=== PATIENT | female | born 1955 | race Hispanic/Latino ===

== ENCOUNTER 2022-08-06 10:18 | Emergency (ER) | payer OTHER ==
[~2022-08-06] VITALS: Ht 160 cm; Wt 61.7 kg
[2022-08-06 10:20] VITALS: BP 136/66
[2022-08-06] MEDS ORDERED: METH4TAB3 PO (11:45)
== END 2022-08-06 11:44 | disposition home or self-care (01) ==
LOC: EDH 10:18
DX: J06.9 Acute upper respiratory infection, unspecified (principal); E11.9 Type 2 diabetes mellitus without complications; Z20.822 Contact with and (suspected) exposure to COVID-19
CPT/HCPCS: 99283; 87635; 87880; 87804 ×2; C9803

== ENCOUNTER → 2023-01-30 | Outpatient (CLI) | payer OTHER ==
[~2023-01-30] MED LIST: AEC81 PO; AMIT50TA3 PO; ATOR10TA69 PO; CICL34.62 TP; GABA-529 PO; LEVAHFA IH; LISPRO SQ; METH4TAB3 PO; METO-408 PO; NETA2.5D3 OU; SITA1TAB6 PO; TIMO5SOL10 OU; VITAMIN B12 PO
== END | disposition home or self-care (01) ==
LOC: LAB 11:59
PROVIDERS: ATTEND Internal Medicine Gastroenterology
DX: E72.29 Other disorders of urea cycle metabolism (principal); K76.9 Liver disease, unspecified
CPT/HCPCS: 36415; 82140

== ENCOUNTER 2023-01-31 10:13 | Day surgery (SDC) | payer OTHER ==
[2023-01-30 13:09] LABS: CREATININE 0.7 mg/dL (0.5-1.5); POTASSIUM 4.6 mmol/L (3.5-5.1)
[2023-01-30 13:25] VITALS: BP 120/63; PULSE 78; RESP 18
[2023-01-31] VITALS (13 sets, daily range): BP systolic 124–154; BP diastolic 57–78; PULSE 78–92; RESP 12–20
[~2023-01-31] VITALS: Ht 157.5 cm; Wt 62.0 kg
[~2023-01-31 10:13] MED LIST changes: -AEC81 PO; -AMIT50TA3 PO; -ATOR10TA69 PO; -CICL34.62 TP; -GABA-529 PO; -LEVAHFA IH; -LISPRO SQ; -METO-408 PO; -NETA2.5D3 OU; -SITA1TAB6 PO; -TIMO5SOL10 OU; -VITAMIN B12 PO
[2023-01-31] MEDS ORDERED: AEC81 PO (12:34)
[2023-01-31] MEDS ORDERED: LEVAHFA IH (12:34)
[2023-01-31] MEDS ORDERED: LISPRO SQ ×2 (12:34)
[2023-01-31] MEDS ORDERED: AMIT50TA3 PO (12:34)
[2023-01-31] MEDS ORDERED: TIMO5SOL10 OU (12:34)
[2023-01-31] MEDS ORDERED: NETA2.5D3 OU (12:34)
[2023-01-31] MEDS ORDERED: ATOR10TA69 PO (12:34)
[2023-01-31] MEDS ORDERED: GABA-529 PO (12:34)
[2023-01-31] MEDS ORDERED: VITAMIN B12 PO (12:34)
[2023-01-31] MEDS ORDERED: CICL34.62 TP (12:34)
[2023-01-31] MEDS ORDERED: SITA1TAB6 PO (12:34)
[2023-01-31] MEDS ORDERED: METO-408 PO (12:34)
[2023-01-31] MEDS ORDERED: PROPOFOL 10 MG/ML 20ML VIAL IV ONE (14:26)
[2023-01-31] MEDS ORDERED: LIDOCAINE HCL 2% VISCOUS 15 ML UDCUP PO ONE (15:45)
== END 2023-01-31 16:25 | disposition home or self-care (01) ==
LOC: ENDO 10:13 → DAH 10:13 → ENDO 16:25
PROVIDERS: ATTEND Internal Medicine Gastroenterology
DX: K76.6 Portal hypertension (principal); I85.10 Secondary esophageal varices without bleeding; K76.9 Liver disease, unspecified; K29.00 Acute gastritis without bleeding; K31.89 Other diseases of stomach and duodenum; R74.8 Abnormal levels of other serum enzymes; I10 Essential (primary) hypertension; E11.9 Type 2 diabetes mellitus without complications; F32.A Depression, unspecified; E78.5 Hyperlipidemia, unspecified; Z98.891 History of uterine scar from previous surgery; Z86.010 Personal history of colon polyps; Z86.16 Personal history of COVID-19
CPT/HCPCS: 80048; 36415; 93005; 43244; J2704; A4620; A4215; A4223; A7002; A4222; A4216; J7030; J3490

== ENCOUNTER 2023-02-07 10:23 | Day surgery (SDC) | payer OTHER ==
[2023-02-07] VITALS (9 sets, daily range): BP systolic 89–115; BP diastolic 41–66; PULSE 71–86; RESP 15–20
[~2023-02-07] VITALS: Ht 157.5 cm; Wt 62.0 kg
[~2023-02-07 10:23] MED LIST changes: +AEC81 PO; +AMIT50TA3 PO; +ATOR10TA69 PO; +CICL34.62 TP; +GABA-529 PO; +LEVAHFA IH; +LISPRO SQ; -METH4TAB3 PO; +METO-408 PO; +NETA2.5D3 OU; +SITA1TAB6 PO; +TIMO5SOL10 OU; +VITAMIN B12 PO
[2023-02-07 11:40] LABS: HEMATOCRIT 34.7 % (36-48); MEAN CORPUSCULAR HEMOGLOBIN 28.6 pg (27.0-33.0); MEAN CORPUSCULAR HGB CONC 33.7 g/dL (32.0-36.0); MEAN CORPUSCULAR VOLUME 84.8 fL (79-99); PLATELET COUNT (AUTO) 235 K/uL (130-400); RED BLOOD CELL COUNT(AUTO) 4.09 MIL/uL (4.00-5.50); WHITE BLOOD COUNT (AUTO) 6.8 K/uL (4.8-10.8)
[2023-02-07] MEDS ORDERED: LIDOCAINE PF 100MG/5ML (2%) SYRINGE 5ML ONE (11:42)
[2023-02-07] MEDS ORDERED: PROPOFOL 10 MG/ML 20ML VIAL IV ONE ×2 (11:42→11:59)
[2023-02-07 11:53] LABS: INR 1.03 (0.85-1.15); PROTHROMBIN TIME 11.9 SEC (9.6-11.6)
[2023-02-07 11:54] LABS: ALBUMIN 3.4 g/dL (3.5-5.0); BILIRUBIN,TOTAL 1.1 mg/dL (0.2-1.0); CREATININE 0.7 mg/dL (0.5-1.5); POTASSIUM 4.2 mmol/L (3.5-5.1); TOTAL PROTEIN, SERUM 8.3 g/dL (6.0-8.3)
[2023-02-07 11:55] LABS: PARTIAL THROMBOPLASTIN TIME 27.6 SEC (26.3-35.5)
[2023-02-07 12:36] LABS: PLATELET MORPHOLOGY COMMENT ADEQUATE
== END 2023-02-07 13:00 | disposition home or self-care (01) ==
LOC: ENDO 10:23 → DAH 10:23 → ENDO 13:00
PROVIDERS: ATTEND Internal Medicine Gastroenterology
DX: Z12.11 Encounter for screening for malignant neoplasm of colon (principal); K64.1 Second degree hemorrhoids; K62.89 Other specified diseases of anus and rectum; I10 Essential (primary) hypertension; E11.9 Type 2 diabetes mellitus without complications; M19.90 Unspecified osteoarthritis, unspecified site; E78.5 Hyperlipidemia, unspecified; I85.10 Secondary esophageal varices without bleeding; K76.6 Portal hypertension; R74.8 Abnormal levels of other serum enzymes; K76.9 Liver disease, unspecified; Z86.010 Personal history of colon polyps; Z79.899 Other long term (current) drug therapy; Z98.891 History of uterine scar from previous surgery; Z98.51 Tubal ligation status; Z86.16 Personal history of COVID-19; Z82.49 Family history of ischemic heart disease and other diseases of the circulatory system; Z83.3 Family history of diabetes mellitus; Z80.0 Family history of malignant neoplasm of digestive organs
CPT/HCPCS: 80053; 85025; 85610; 85730; 82948; 36415; J2001; J2704 ×2; A4620; G0105; A4215 ×2; A4223; A7002; A4222; A4221; A4663; A4216; J7030; A4606; 45378; J3490

== ENCOUNTER → 2023-02-14 | Outpatient (CLI) | payer OTHER ==
[~2023-02-14] MED LIST changes: +REGADENOSON 0.4 MG/5 ML PF SYG IVP ONE
== END | disposition home or self-care (01) ==
LOC: SHCH 08:20
PROVIDERS: ATTEND Internal Medicine Cardiovascular Disease
DX: R06.00 Dyspnea, unspecified (principal); R06.02 Shortness of breath; Z82.49 Family history of ischemic heart disease and other diseases of the circulatory system
CPT/HCPCS: 78452; 96374; 93017; J2785; A9500 ×2

== ENCOUNTER 2023-12-28 18:22 | Emergency (ER) | payer MEDICARE ==
[~2023-12-28] VITALS: Ht 165.1 cm; Wt 59.9 kg
[~2023-12-28 18:22] MED LIST changes: -REGADENOSON 0.4 MG/5 ML PF SYG IVP ONE
[2023-12-28 19:44] VITALS: BP 115/65; PULSE 90; RESP 20; TEMP 98.2; O2SAT 99
== END 2023-12-28 19:46 | disposition home or self-care (01) ==
LOC: EDH 18:22
DX: S00.12XA Contusion of left eyelid and periocular area, initial encounter (principal); E11.9 Type 2 diabetes mellitus without complications; E78.00 Pure hypercholesterolemia, unspecified; Z79.82 Long term (current) use of aspirin; Z79.84 Long term (current) use of oral hypoglycemic drugs; Z79.899 Other long term (current) drug therapy; W01.0XXA Fall on same level from slipping, tripping and stumbling without subsequent striking against object, initial encounter; Y93.89 Activity, other specified; Y92.89 Other specified places as the place of occurrence of the external cause; Y99.8 Other external cause status
CPT/HCPCS: 70450; 70486

== ENCOUNTER 2024-03-17 12:12 | Emergency (ER) | payer MEDICARE ==
[~2024-03-17] VITALS: Ht 152.4 cm; Wt 53.5 kg
[~2024-03-17 12:12] MED LIST changes: +LEVA15HF6 IH; -LEVAHFA IH
--- NOTE | 2024-03-17 12:24 | ERN ---
ED Note History of Present Illness Stated Complaint: PELVIC PAIN Chief Complaint: Pelvic Pain Time Seen by MD: 12:20 Dictation: 68-YEAR-OLD FEMALE HERE WITH PELVIC PAIN AND DYSURIA ONSET FOR SEVERAL DAYS. NO FEVER NO CHILLS NO NAUSEA VOMITING. PER PATIENT AND , SHE HAD HER HYSTERECTOMY DONE ON December AT [facility], AND HAS BEEN HAVING URINARY TRACT INFECTION SINCE. SHE HAS NOT SEEN HER PRIMARY CARE DOCTOR ABOUT THIS CURRENT COMPLAINT. Allergies: Coded Allergies: No Known Drug Allergies (Unverified Allergy, Unknown, 08/06/22) Home Meds Reported Medications Atorvastatin Calcium (Atorvastatin Calcium) 10 Mg Tablet, 10 MG PO HS, TAB 01/31/23 Gabapentin (Gabapentin) 100 Mg Capsule, 100 MG PO TID, CAP 01/31/23 Metoprolol Succinate (Metoprolol Succinate) 25 Mg Tab.er.24h, 25 MG PO DAILY, TAB 01/31/23 [Lispro] No Conflict Check, 19 UNITS SQ HS 01/31/23 Ciclopirox/Ure/Camph/Menth/Euc (Ciclopirox 8% Treatment Kit) 8 % Solution, 34.6 ML TP HS, ML 01/31/23 Sitagliptin Phos/Metformin HCl (Janumet 50-1,000 mg Tablet) 50 Mg-1,000 Mg Tablet, 1 EACH PO BID, TAB 01/31/23 Netarsudil Mesylat/Latanoprost (Rocklatan 0.02%-0.005% Eye Drp) 0.02 %-0.005 % Drops, 1 DROP OU HS, DROP 01/31/23 Levalbuterol Tartrate (Xopenex Hfa) 45 Mcg/Actuation Hfa.aer.ad, 2 PUFF IH Q6HR PRN for SHORTNESS OF BREATH/WHEEZING 01/31/23 Timolol Maleate (Timolol Maleate) 0.5 % Lesly.gel, 1 DROP OU HS 01/31/23 [Lispro] No Conflict Check, 23 UNITS SQ DAILY 01/31/23 Aspirin (ASPIRIN 81 MG ECTAB) 81 Mg Ectab, 81 MG PO DAILY, TAB.EC 01/31/23 [Vitamin B12] No Conflict Check, 1000 MCG PO DAILY 01/31/23 Amitriptyline HCl (Amitriptyline HCl) 50 Mg Tablet, 50 MG PO HS, TAB 01/31/23 Past Medical History Past Medical History: Diabetes-Type II, High Cholesterol Surgical History: None, Unknown (HYSTERECTOMY) History: Not Applicable RN Note Reviewed/Agreed w/PFSH: Yes Review of System Dictation CONSTITUTIONAL: NEGATIVE EXCEPT FOR HPI HEAD/FACE: NEGATIVE EXCEPT FOR HPI EENT: NEGATIVE EXCEPT FOR HPI RESPIRATORY: NEGATIVE EXCEPT FOR HPI GASTROINTESTINAL/ABDOMINAL: NEGATIVE EXCEPT FOR HPI GENITOURINARY: NEGATIVE EXCEPT FOR HPI SUPRAPUBIC PAIN WITH DYSURIA MUSCULOSKELETAL: NEGATIVE EXCEPT FOR HPI INTEGUMENTARY: NEGATIVE EXCEPT FOR HPI NEUROLOGICAL/PSYCH: NEGATIVE EXCEPT FOR HPI HEMATOLOGIC/LYMPHATIC: NEGATIVE EXCEPT FOR HPI ALL SYSTEMS NEGATIVE, EXCEPT NOTED ABOVE. 13 POINT REVIEW OF SYSTEMS ASSESSED AND ALL NEGATIVE EXCEPT FOR ABOVE. Initial Vital Sign VS Vital Signs Date Time Temp Pulse Resp B/P (MAP) Pulse Ox O2 Delivery O2 Flow Rate FiO2 03/17/24 12:18 98.6 105 18 119/67 98 Room Air 0 03/17/24 12:26 21 Physical Exam Dictation VITAL SIGNS REVIEWED GENERAL APPEARANCE: ALERT, ORIENTED X 3, MILD ACUTE DISTRESS, WELL DEVELOPED, NOURISHED. HEAD AND FACE: NON-TRAUMATIC. EYES: PERRL, PINK CONJUNCTIVAS, EYELID NO TRAUMA, ANTERIOR CHAMBER WITH ARCUS SENILIS. EARS: PINNAS INTACT AND NO SIGNS OF TRAUMA OR ERYTHEMA EAR CANALS CLEAR AND NO DISCHARGE TM NO ERYTHEMA NOSE: NO DISCHARGE, NO BLEEDING. OROPHARYNX: MOUTH NORMAL, TONGUE PINK, PHARYNX CLEAR,NO ERYTHEMA, TONSILS NO EXUDATES, NO ABSCESSES NOTED, MUCOUS MEMBRANE MOIST NECK: SUPPLE, NON-TENDER, NO THYROMEGALY, NO MASSES, NO JVD, NO BRUITS BREAST:DEFERRED CHEST:NO TENDERNESS, NO CREPITUS, NO PARADOXICAL MOVEMENT, NO RETRACTIONS LUNGS:CLEAR, WELL-VENTILATED, SYMMETRIC, NO RALES, NO WHEEZING, NO RHONCHI, NO STRIDOR, GOOD BREATH SOUNDS BILATERALLY HEART: REGULAR RATE, REGULAR RHYTHM, NO MURMUR, NO GALLOPS VASCULAR: NO PERIPHERAL EDEMA, ABDOMEN: SOFT, POSITIVE BOWEL SOUNDS, NONDISTENDED, NO GUARDING, NONTENDER, NO REBOUND, NO MASSES NO HEPATOMEGALY, NO SPLENOMEGALY, NO BREWER'S SIGN, NO HERNIAS. RECTAL: DEFERRED GENITAL: DEFERRED SUPRAPUBIC TENDERNESS, PALPATED OVER HER CLOTHES IN TRIAGE. NEUROLOGICAL: NORMAL SPEECH, MOTOR FUNCTION INTACT, SENSORY FUNCTION INTACT MUSCULOSKELETAL: NECK NONTENDER, FULL RANGE OF MOTION, BACK NONTENDER, FULL RANGE OF MOTION, EXTREMITIES: NONTENDER, FULL RANGE OF MOTION SKIN: COLOR PINK, DRY, NO TURGOR, NO RASH, NO LACERATIONS, NO ABRASIONS, NO CONTUSIONS. LYMPHATIC: DEFERRED Results (Laboratory/Radiology) Laboratory/Radiology Laboratory Tests Test 03/17/24 12:45 03/17/24 16:24 White Blood Count 7.0 K/uL (4.8-10.8) Red Blood Count 3.65 MIL/uL (4.00-5.50) L Hemoglobin 10.8 g/dL (12.0-16.0) L Hematocrit 32.0 % (36-48) L Mean Corpuscular Volume 87.7 fL (79-99) Mean Corpuscular Hemoglobin 29.6 pg (27.0-33.0) Mean Corpuscular Hemoglobin Concent 33.8 g/dL (32.0-36.0) Red Cell Distribution Width 17.2 % (11.0-15.5) H Platelet Count 333 K/uL (130-400) Mean Platelet Volume 9.3 fL (7.5-10.5) Immature Granulocyte % (Auto) 0.7 % (0-1) Neutrophils (%) (Auto) 55.3 % (40.0-77.0) Lymphocytes (%) (Auto) 27.0 % (21.0-51.0) Monocytes (%) (Auto) 13.5 % (3.0-13.0) H Eosinophils (%) (Auto) 3.1 % (0.0-8.0) Basophils (%) (Auto) 0.4 % (0.0-5.0) Neutrophils # (Auto) 3.9 K/uL (1.8-7.7) Lymphocytes # (Auto) 1.9 K/uL (1.0-4.8) Monocytes # (Auto) 1.0 K/uL (0.1-1.0) Eosinophils # (Auto) 0.22 K/uL (0.00-0.70) Basophils # (Auto) 0.03 K/uL (0.00-0.20) Absolute Immature Granulocyte (auto 0.05 K/uL (0-1) Nucleated Red Blood Cells 0.0 % (0.0-0.19) Sodium Level 143 mmol/L (136-145) Potassium Level 3.5 mmol/L (3.5-5.1) Chloride Level 105 mmol/L (101-111) Carbon Dioxide Level 30 mmol/L (21-32) Blood Urea Nitrogen 6 mg/dL (7-18) L Creatinine 0.8 mg/dL (0.5-1.0) Glomerular Filtration Rate Calc 80 mL/min (>90) Random Glucose 214 mg/dL (70-105) H Total Calcium 8.9 mg/dL (8.5-10.1) Lipase 12 U/L (16-77) L Urine Color YELLOW (YELLOW) Urine Appearance CLOUDY (CLEAR) H Urine pH 6.5 (5.0-8.0) Urine Specific [place] 1.019 (1.001-1.031) Urine Protein NEGATIVE mg/dL (NEGATIVE) Urine Glucose (UA) >=1000 mg/dL (NEGATIVE) H Urine Ketones 5 mg/dL (NEGATIVE) H Urine Occult Blood NEGATIVE (NEGATIVE) Urine Nitrate NEGATIVE (NEGATIVE) Urine Bilirubin NEGATIVE mg/dL (NEGATIVE) Urine Urobilinogen 0.2 mg/dL (0.2-1.0) Urine Leukocyte Esterase 75 Magda/uL (NEGATIVE) H Urine RBC 2-5 /HPF (0-1) H Urine WBC 11-25 /HPF (0-1) H Urine Squamous Epithelial Cells FEW /HPF (0-2) Urine Bacteria RARE /HPF (None Seen) Labs Reviewed?: Yes ED Course ED Course Orders Procedure Category Date Status Time Cbc With Differential LAB 03/17/24 Complete 12:22 Basic Metabolic Panel LAB 03/17/24 Complete 12:22 Urinalysis Profile LAB 03/17/24 Complete 12:22 Lipase LAB 03/17/24 Complete 12:22 Culture Urine ULISES 03/17/24 Logged 16:48 Phenazopyridine Hcl PHA 03/17/24 Transmitted 200 Mg Tab (Pyridium 17:00 Amox/Clav 875/125mg PHA 03/17/24 Transmitted Tab (Augmentin 875-1 17:00 Vital Signs Date Time Temp Pulse Resp B/P (MAP) Pulse Ox O2 Delivery O2 Flow Rate FiO2 03/17/24 16:52 99.3 102 18 132/69 98 Room Air* 0 21 03/17/24 12:26 98.6 105 18 119/67 98 Room Air* 0 21 03/17/24 12:18 98.6 105 18 119/67 98 Room Air 0 17:00 HOURS, PATIENT IS HEMODYNAMICALLY STABLE DISCHARGED HOME AFTER BEING GIVEN AUGMENTIN AND PYRIDIUM FOR PAIN. DISCHARGED HOME WITH URINARY TRACT INFECTION AND TOLD TO SEE HER ENGINEERING AND SCIENTIFIC PROGRAMMER DOCTOR IN 1-2 DAYS OR PRIMARY CARE DOCTOR. Medical Decision Making MDM MEDICAL DISCHARGE MAKING BASED ON LABS AND URINALYSIS. PATIENT HAS CYSTITIS WITH HEMATURIA SHE WILL BE GIVEN PYRIDIUM AND AUGMENTIN DISCHARGED HOME WITH ANTIBIOTICS AND PAIN MANAGEMENT TOLD TO SEE HER PRIMARY CARE DOCTOR FOR REFERRAL TO UROLOGY. DX & DISP Disposition: Discharge Departure Impression: Primary Impression: Acute cystitis with hematuria Additional Impression: Uncontrolled diabetes mellitus Condition: Stable Scripts Phenazopyridine HCl (Pyridium) 200 Mg Tab 200 MG PO TIDPC for 3 Days, #9 TAB TAKE WITH FOOD TO PREVENT STOMACH UPSET. Prov: ERON MORRIS NP 03/17/24 Acetaminophen with Codeine (Acetaminophen-Cod #3 Tablet) 300 Mg-30 Mg Tablet 1 TAB PO Q4H PRN for MODERATE TO SEVERE PAIN, #12 TAB Prov: ERON MORRIS NP 03/17/24 Amoxicillin/Potassium Clav (Amox Tr-K Clv 875-125 mg Tab) 875 Mg-125 Mg Tablet 1 EACH PO BID for 7 Days, #14 TAB 0 Refills Prov: ERON MORRIS NP 03/17/24 Additional Instructions: Follow-up with primary care provider in 1 to 2 days. Take medications as directed here in the emergency room. Okay to continue home medications unless otherwise discussed during your visit in the emergency room today. Return to your nearest emergency room if symptoms worsen or if there is no improvement. Call 911 if you need immediate assistance. Take Tylenol or Motrin [id number] as needed and if no contraindications are present. Increase oral hydration. A wound culture or urine culture was ordered here in the emergency room department please follow-up with primary care provider and advise them to get repeat ports from our facility. If you had any Marquise wrap/splints that were applied here, please do not remove them until you see your primary care or specialty. Take antibiotics as directed until gone. , increase your water intake. Take your diabetic medications from your doctor as directed and see him for an appointment in 1-2 days. Suggest Urology referral if you have had frequent u rinary tract infections. Referrals: AILEEN GREER DO (PCP) Time of Disposition: 17:02 I have reviewed the case, and I agree with, Diagnosis and Plan ERON MORRIS NP Mar 17, 2024 12:24
[2024-03-17 12:51] LABS: BASOPHILS # (AUTO) 0.03 K/uL (0.00-0.20); BASOPHILS % (AUTO) 0.4 % (0.0-5.0); EOSINOPHILS # (AUTO) 0.22 K/uL (0.00-0.70); EOSINOPHILS % (AUTO) 3.1 % (0.0-8.0); IMMATURE GRANULOCYTE ABSOLUTE 0.05 K/uL (0-1); LYMPHOCYTES # (AUTO) 1.9 K/uL (1.0-4.8); MEAN CORPUSCULAR HEMOGLOBIN 29.6 pg (27.0-33.0); MEAN CORPUSCULAR HGB CONC 33.8 g/dL (32.0-36.0); MEAN CORPUSCULAR VOLUME 87.7 fL (79-99); MONOCYTES % (AUTO) 13.5 % (3.0-13.0); NEUTROPHILS # (AUTO) 3.9 K/uL (1.8-7.7); NEUTROPHILS % (AUTO) 55.3 % (40.0-77.0); PLATELET COUNT (AUTO) 333 K/uL (130-400); RED BLOOD CELL COUNT(AUTO) 3.65 MIL/uL (4.00-5.50); RED CELL DISTRIBUTION WIDTH 17.2 % (11.0-15.5)
[2024-03-17 13:06] LABS: CREATININE 0.8 mg/dL (0.5-1.0); POTASSIUM 3.5 mmol/L (3.5-5.1)
[2024-03-17 16:45] LABS: APPEARANCE,URINE CLOUDY (CLEAR); BILIRUBIN,URINE NEGATIVE (NEGATIVE); COLOR,URINE YELLOW (YELLOW); GLUCOSE, URINE (UA) >=1000 mg/dL (NEGATIVE); KETONES,URINE 5 mg/dL (NEGATIVE); LEUKOCYTE ESTERASE ,URINE 75 Leu/uL (NEGATIVE); NITRATE,URINE NEGATIVE (NEGATIVE); OCCULT BLOOD,URINE NEGATIVE (NEGATIVE); PH,URINE 6.5 (5.0-8.0); PROTEIN,URINE NEGATIVE (NEGATIVE); UROBILINOGEN,URINE 0.2 mg/dL (0.2-1.0)
[2024-03-17 16:48] LABS: ADD UA MICROSCOPIC YES
[2024-03-17 16:49] LABS: BACTERIA,URINE RARE /HPF (None Seen); MUCUS,URINE RARE LPF (None Seen); SQUAMOUS EPITHELIAL CELL,UR FEW /HPF (0-2)
[2024-03-17] MEDS ORDERED: PHEN-847 PO (17:04)
[2024-03-17] MEDS ORDERED: AMOX1TAB16 PO (17:04)
[2024-03-17] MEDS ORDERED: ACET-2079 PO (17:04)
[2024-03-17] MEDS: AMOX/CLAV 875/125MG TAB PO ONE (17:33)
[2024-03-17] MEDS: acetaMINOPHEN WITH coDEINE 1 TAB TAB PO ONE (17:33)
[2024-03-17] MEDS: PHENAZOpyridine HCL 200 MG TAB 200 MG TABLET PO ONE (17:34)
[2024-03-17 17:54] VITALS: BP 129/71; PULSE 92; RESP 18; TEMP 97.8; O2SAT 99
== END 2024-03-17 17:53 | disposition home or self-care (01) ==
LOC: EDH 12:12
DX: N30.01 Acute cystitis with hematuria (principal); E11.65 Type 2 diabetes mellitus with hyperglycemia; E78.00 Pure hypercholesterolemia, unspecified; Z79.82 Long term (current) use of aspirin; Z79.84 Long term (current) use of oral hypoglycemic drugs; Z79.899 Other long term (current) drug therapy; Z90.710 Acquired absence of both cervix and uterus
CPT/HCPCS: 36415; 80048; 81001; 83690; 85025; 87086; 87186; 99284

== ENCOUNTER → 2024-04-04 | Outpatient (CLI) | payer MEDICARE ==
[~2024-04-04] MED LIST changes: +ACET-2079 PO; +AMOX1TAB16 PO; +PHEN-847 PO
[2024-04-04 11:49] LABS: BASOPHILS # (AUTO) 0.03 K/uL (0.00-0.20); BASOPHILS % (AUTO) 0.5 % (0.0-5.0); EOSINOPHILS % (AUTO) 3.2 % (0.0-8.0); HEMATOCRIT 31.7 % (36-48); IMMATURE GRANULOCYTE ABSOLUTE 0.03 K/uL (0-1); LYMPHOCYTES # (AUTO) 1.3 K/uL (1.0-4.8); LYMPHOCYTES % (AUTO) 20.6 % (21.0-51.0); MEAN CORPUSCULAR HGB CONC 31.9 g/dL (32.0-36.0); MEAN CORPUSCULAR VOLUME 91.1 fL (79-99); MONOCYTES # (AUTO) 0.7 K/uL (0.1-1.0); MONOCYTES % (AUTO) 11.7 % (3.0-13.0); NEUTROPHILS # (AUTO) 3.9 K/uL (1.8-7.7); NEUTROPHILS % (AUTO) 63.5 % (40.0-77.0); PLATELET COUNT (AUTO) 198 K/uL (130-400); RED BLOOD CELL COUNT(AUTO) 3.48 MIL/uL (4.00-5.50); RED CELL DISTRIBUTION WIDTH 16.5 % (11.0-15.5); WHITE BLOOD COUNT (AUTO) 6.2 K/uL (4.8-10.8)
[2024-04-04 12:01] LABS: INR 1.1 (0.85-1.15); PROTHROMBIN TIME 12.2 SEC (9.6-11.6)
[2024-04-04 12:02] LABS: PARTIAL THROMBOPLASTIN TIME 29.1 SEC (26.3-35.5)
[2024-04-04 12:03] LABS: ALBUMIN 2.3 g/dL (3.5-5.0); BILIRUBIN,TOTAL 0.7 mg/dL (0.2-1.0); CREATININE 0.7 mg/dL (0.5-1.0); POTASSIUM 4.1 mmol/L (3.5-5.1); TOTAL PROTEIN, SERUM 8.2 g/dL (6.0-8.3)
== END | disposition home or self-care (01) ==
LOC: LAB 10:46
PROVIDERS: ATTEND Internal Medicine Gastroenterology
DX: K74.60 Unspecified cirrhosis of liver (principal)
CPT/HCPCS: 36415; 80053; 82105; 82140; 85025; 85610; 85730

== ENCOUNTER → 2024-06-21 | Outpatient (CLI) | payer MEDICARE ==
[2024-06-21 11:57] LABS: BASOPHILS # (AUTO) 0.02 K/uL (0.00-0.20); BASOPHILS % (AUTO) 0.5 % (0.0-5.0); EOSINOPHILS # (AUTO) 0.21 K/uL (0.00-0.70); EOSINOPHILS % (AUTO) 5.1 % (0.0-8.0); IMMATURE GRANULOCYTE ABSOLUTE 0.01 K/uL (0-1); LYMPHOCYTES # (AUTO) 1.4 K/uL (1.0-4.8); LYMPHOCYTES % (AUTO) 33.8 % (21.0-51.0); MEAN CORPUSCULAR HEMOGLOBIN 28.5 pg (27.0-33.0); MEAN CORPUSCULAR HGB CONC 32.4 g/dL (32.0-36.0); MONOCYTES # (AUTO) 0.5 K/uL (0.1-1.0); MONOCYTES % (AUTO) 12.9 % (3.0-13.0); NEUTROPHILS % (AUTO) 47.5 % (40.0-77.0); PLATELET COUNT (AUTO) 182 K/uL (130-400); RED BLOOD CELL COUNT(AUTO) 3.75 MIL/uL (4.00-5.50); RED CELL DISTRIBUTION WIDTH 16.5 % (11.0-15.5); WHITE BLOOD COUNT (AUTO) 4.1 K/uL (4.8-10.8)
[2024-06-21 12:14] LABS: INR 1.13 (0.85-1.15); PROTHROMBIN TIME 11.8 SEC (9.6-11.6)
[2024-06-21 12:17] LABS: ALBUMIN 3.2 g/dL (3.5-5.0); BILIRUBIN,TOTAL 0.9 mg/dL (0.2-1.0); CREATININE 0.7 mg/dL (0.5-1.0); TOTAL PROTEIN, SERUM 8.9 g/dL (6.0-8.3)
== END | disposition home or self-care (01) ==
LOC: LAB 11:23
PROVIDERS: ATTEND Internal Medicine Gastroenterology
DX: K74.60 Unspecified cirrhosis of liver (principal)
CPT/HCPCS: 36415; 80053; 82105; 82140; 85025; 85610

== ENCOUNTER → 2024-07-25 | Outpatient (CLI) | payer MEDICARE, MEDICAID ==
[~2024-07-25] VITALS: Ht 160 cm; Wt 54.4 kg
[~2024-07-25] MED LIST changes: -ACET-2079 PO; -AMOX1TAB16 PO; +INSU100I15 SQ; +LACT10SO76 PO; +LACT10SO85 PO; +NETA2.5D OP; -PHEN-847 PO; +PROP10TA10 PO; +TIMO5DRO OP; +[UNRECOGNIZED DRUG - OTHER] TP
[2024-08-06 10:54] VITALS: BP 123/58; PULSE 79; RESP 17; TEMP 97.7
[2024-08-06 11:15] LABS: BASOPHILS # (AUTO) 0.02 K/uL (0.00-0.20); BASOPHILS % (AUTO) 0.4 % (0.0-5.0); EOSINOPHILS # (AUTO) 0.13 K/uL (0.00-0.70); EOSINOPHILS % (AUTO) 2.4 % (0.0-8.0); HEMATOCRIT 32.1 % (36-48); IMMATURE GRANULOCYTE ABSOLUTE 0.01 K/uL (0-1); LYMPHOCYTES # (AUTO) 1.6 K/uL (1.0-4.8); LYMPHOCYTES % (AUTO) 29.1 % (21.0-51.0); MEAN CORPUSCULAR HEMOGLOBIN 28.6 pg (27.0-33.0); MEAN CORPUSCULAR VOLUME 86.8 fL (79-99); MONOCYTES # (AUTO) 0.6 K/uL (0.1-1.0); MONOCYTES % (AUTO) 11.3 % (3.0-13.0); NEUTROPHILS # (AUTO) 3.1 K/uL (1.8-7.7); NEUTROPHILS % (AUTO) 56.6 % (40.0-77.0); PLATELET COUNT (AUTO) 157 K/uL (130-400); RED CELL DISTRIBUTION WIDTH 15.8 % (11.0-15.5); WHITE BLOOD COUNT (AUTO) 5.5 K/uL (4.8-10.8)
[2024-08-06 11:25] LABS: CREATININE 0.6 mg/dL (0.5-1.0); POTASSIUM 4.1 mmol/L (3.5-5.1)
[2024-08-06 11:30] LABS: BILIRUBIN,TOTAL 1.1 mg/dL (0.2-1.0)
[2024-08-06 11:55] LABS: INR 1.19 (0.85-1.15); PROTHROMBIN TIME 12.4 SEC (9.6-11.6)
== END | disposition home or self-care (01) ==
LOC: LAB 11:56
PROVIDERS: ATTEND Internal Medicine Gastroenterology
DX: K74.60 Unspecified cirrhosis of liver (principal)
CPT/HCPCS: 36415; 80053; 85025; 85610; 85730

== ENCOUNTER 2024-08-06 10:37 | Day surgery (SDC) | payer MEDICARE, MEDICAID ==
[2024-07-25 13:05] LABS: BASOPHILS # (AUTO) 0.02 K/uL (0.00-0.20); BASOPHILS % (AUTO) 0.4 % (0.0-5.0); EOSINOPHILS # (AUTO) 0.23 K/uL (0.00-0.70); EOSINOPHILS % (AUTO) 4.3 % (0.0-8.0); HEMATOCRIT 35.5 % (36-48); IMMATURE GRANULOCYTE ABSOLUTE 0.02 K/uL (0-1); LYMPHOCYTES # (AUTO) 1.6 K/uL (1.0-4.8); LYMPHOCYTES % (AUTO) 29.8 % (21.0-51.0); MEAN CORPUSCULAR HEMOGLOBIN 28.2 pg (27.0-33.0); MEAN CORPUSCULAR HGB CONC 32.1 g/dL (32.0-36.0); MEAN CORPUSCULAR VOLUME 87.9 fL (79-99); MONOCYTES # (AUTO) 0.6 K/uL (0.1-1.0); MONOCYTES % (AUTO) 11.3 % (3.0-13.0); NEUTROPHILS # (AUTO) 2.9 K/uL (1.8-7.7); NEUTROPHILS % (AUTO) 53.8 % (40.0-77.0); PLATELET COUNT (AUTO) 158 K/uL (130-400); RED BLOOD CELL COUNT(AUTO) 4.04 MIL/uL (4.00-5.50); RED CELL DISTRIBUTION WIDTH 16.1 % (11.0-15.5); WHITE BLOOD COUNT (AUTO) 5.3 K/uL (4.8-10.8)
[2024-07-25 13:17] LABS: ALBUMIN 3.4 g/dL (3.5-5.0); BILIRUBIN,TOTAL 0.8 mg/dL (0.2-1.0); CREATININE 0.8 mg/dL (0.5-1.0); POTASSIUM 4.4 mmol/L (3.5-5.1)
[2024-07-25 13:20] LABS: INR 1.14 (0.85-1.15); PROTHROMBIN TIME 11.9 SEC (9.6-11.6)
[~2024-08-06] VITALS: Ht 160 cm; Wt 54.4 kg
[2024-08-06] VITALS (12 sets, daily range): BP systolic 108–147; BP diastolic 54–78; PULSE 70–84; RESP 15–17; TEMP 96.9–97.7
[~2024-08-06 10:37] MED LIST changes: -INSU100I15 SQ; -LACT10SO76 PO; -LACT10SO85 PO; -NETA2.5D OP; -PROP10TA10 PO; -TIMO5DRO OP; -[UNRECOGNIZED DRUG - OTHER] TP
[2024-08-06] MEDS: 0.9%NACL 1000ML 1,000 ML IV ONE (10:59)
[2024-08-06] MEDS ORDERED: INSU100I15 SQ (11:38)
[2024-08-06] MEDS ORDERED: PROP10TA10 PO (11:38)
[2024-08-06] MEDS ORDERED: LACT10SO76 PO (11:38)
[2024-08-06] MEDS ORDERED: [UNRECOGNIZED DRUG - OTHER] TP (11:38)
[2024-08-06] MEDS ORDERED: LACT10SO85 PO (11:38)
[2024-08-06] MEDS ORDERED: TIMO5DRO OP (11:38)
[2024-08-06] MEDS ORDERED: NETA2.5D OP (11:38)
[2024-08-06] MEDS ORDERED: 0.9%NACL 1000ML 1,000 ML IV ONE (13:08)
[2024-08-06] MEDS ORDERED: proPOFol 10 MG/ML 20ML VIAL IV ONE (14:27)
== END 2024-08-06 16:00 | disposition home or self-care (01) ==
LOC: ENDO 10:37 → DAH 10:37 → ENDO 16:00
PROVIDERS: ATTEND Internal Medicine Gastroenterology
DX: K74.60 Unspecified cirrhosis of liver (principal); K29.00 Acute gastritis without bleeding; K31.89 Other diseases of stomach and duodenum; I85.10 Secondary esophageal varices without bleeding; K76.6 Portal hypertension; E11.9 Type 2 diabetes mellitus without complications; I10 Essential (primary) hypertension; E78.5 Hyperlipidemia, unspecified; Z86.0100 Personal history of colon polyps, unspecified; Z79.899 Other long term (current) drug therapy; Z79.82 Long term (current) use of aspirin; Z86.16 Personal history of COVID-19; Z83.3 Family history of diabetes mellitus; Z82.49 Family history of ischemic heart disease and other diseases of the circulatory system; Z98.890 Other specified postprocedural states; Z90.710 Acquired absence of both cervix and uterus; Z98.891 History of uterine scar from previous surgery
CPT/HCPCS: 82948 ×2; 43244; J7030 ×2; J2704; A4620; A4215; 36415; 80053; 85025; 85610; 85730; J3490

== ENCOUNTER 2024-10-08 11:21 | Day surgery (SDC) | payer MEDICARE, MEDICAID ==
[~2024-10-08] VITALS: Ht 160 cm; Wt 54.4 kg
[2024-10-08] VITALS (12 sets, daily range): BP systolic 125–151; BP diastolic 68–78; PULSE 87–95; RESP 14–18; TEMP 97.1–98.3
[~2024-10-08 11:21] MED LIST changes: +AMIT50TA14 PO; -AMIT50TA3 PO; -CICL34.62 TP; +INSU100I15 SQ; +LACT10SO76 PO; +LACT10SO85 PO; -LEVA15HF6 IH; -LISPRO SQ; +NETA2.5D OP; -NETA2.5D3 OU; +PROP10TA10 PO; +TIMO5DRO OP; -TIMO5SOL10 OU; +[UNRECOGNIZED DRUG - OTHER] TP
[2024-10-08 12:14] LABS: IMMATURE GRANULOCYTE ABSOLUTE 0.01 K/uL (0-1); NUCLEATED RED BLOOD CELLS 0.0 % (0.0-0.19); PLATELET COUNT (AUTO) 166 K/uL (130-400); RED BLOOD CELL COUNT(AUTO) 3.87 MIL/uL (4.00-5.50); RED CELL DISTRIBUTION WIDTH 15.9 % (11.0-15.5); WHITE BLOOD COUNT (AUTO) 3.9 K/uL (4.8-10.8)
[2024-10-08] MEDS: 0.9%NACL 1000ML 1,000 ML IV ONE (12:18)
[2024-10-08 12:22] LABS: INR 1.14 (0.85-1.15)
[2024-10-08 12:25] LABS: CREATININE 0.7 mg/dL (0.5-1.0); GLOMERULAR FILTR. RATE CALC 94.0 mL/min (>90); GLUCOSE,RANDOM 243.0 mg/dL (70-105); SODIUM SERUM 137.0 mmol/L (136-145); UREA NITROGEN, BLOOD 5.0 mg/dL (7-18)
[2024-10-08 12:30] LABS: ASPARTATE AMINOTRANSFERASE 101.0 U/L (10-37); TOTAL PROTEIN, SERUM 9.0 g/dL (6.0-8.3)
[2024-10-08] MEDS ORDERED: LIDOCAINE PF 100MG/5ML (2%) SYRINGE 5ML ONE (13:24)
[2024-10-08] MEDS ORDERED: GLYCOPYRROLATE 0.2 MG/ML 5 ML VIAL ONE (13:24)
[2024-10-08] MEDS ORDERED: PANT20TA PO (14:27)
[2024-10-08] MEDS ORDERED: PANT40TA55 PO (14:29)
--- NOTE | 2024-10-08 15:07 | NUR ---
Full and complete discharge instructions given to Patient and Family both verbally and in writing. Explained GI procedure precautions and follow up. All questions answered. PIV removed with catheter tip intact. Home with Family W/C to POV.
== END 2024-10-08 15:10 | disposition home or self-care (01) ==
LOC: DAH 11:21 → ENDO 11:21
PROVIDERS: ATTEND Internal Medicine Gastroenterology
DX: K74.60 Unspecified cirrhosis of liver (principal); I85.10 Secondary esophageal varices without bleeding; K31.89 Other diseases of stomach and duodenum; K76.6 Portal hypertension; K29.00 Acute gastritis without bleeding; I10 Essential (primary) hypertension; E78.5 Hyperlipidemia, unspecified; E11.9 Type 2 diabetes mellitus without complications; Z86.0100 Personal history of colon polyps, unspecified; Z20.822 Contact with and (suspected) exposure to COVID-19; Z90.710 Acquired absence of both cervix and uterus; Z98.51 Tubal ligation status; Z79.899 Other long term (current) drug therapy
CPT/HCPCS: 43244; 80053; 85025; 85610; 82948 ×2; 36415; J7030; J2003; J2704; J3490 ×2; A4620; A4215

== ENCOUNTER 2024-11-05 11:07 | Day surgery (SDC) | payer MEDICARE, MEDICAID ==
[2024-11-05] VITALS (12 sets, daily range): BP systolic 126–155; BP diastolic 59–77; PULSE 95–101; RESP 15–18; TEMP 97.2–98.3
[~2024-11-05] VITALS: Ht 160 cm; Wt 53.5 kg
[~2024-11-05 11:07] MED LIST changes: -NETA2.5D OP; +PANT40TA55 PO; -PROP10TA10 PO; -TIMO5DRO OP; -[UNRECOGNIZED DRUG - OTHER] TP
[2024-11-05] MEDS: 0.9%NACL 1000ML 1,000 ML IV ONE (11:51)
[2024-11-05 12:02] LABS: IMMATURE GRANULOCYTE ABSOLUTE 0.02 K/uL (0-1); NUCLEATED RED BLOOD CELLS 0.0 % (0.0-0.19); PLATELET COUNT (AUTO) 147 K/uL (130-400); RED BLOOD CELL COUNT(AUTO) 3.54 MIL/uL (4.00-5.50); RED CELL DISTRIBUTION WIDTH 15.7 % (11.0-15.5); WHITE BLOOD COUNT (AUTO) 3.7 K/uL (4.8-10.8)
[2024-11-05 12:11] LABS: INR 1.13 (0.85-1.15)
[2024-11-05 12:15] LABS: ASPARTATE AMINOTRANSFERASE 58.0 U/L (10-37); CREATININE 0.6 mg/dL (0.5-1.0); GLOMERULAR FILTR. RATE CALC 98.0 mL/min (>90); GLUCOSE,RANDOM 240.0 mg/dL (70-105); SODIUM SERUM 140.0 mmol/L (136-145); TOTAL PROTEIN, SERUM 8.1 g/dL (6.0-8.3); UREA NITROGEN, BLOOD 6.0 mg/dL (7-18)
[2024-11-05] MEDS ORDERED: PANT40TA PO (14:11)
== END 2024-11-05 14:45 | disposition home or self-care (01) ==
LOC: DAH 11:07 → ENDO 11:07
PROVIDERS: ATTEND Internal Medicine Gastroenterology
DX: K74.60 Unspecified cirrhosis of liver (principal); I85.10 Secondary esophageal varices without bleeding; K76.6 Portal hypertension; I10 Essential (primary) hypertension; K21.00 Gastro-esophageal reflux disease with esophagitis, without bleeding; K29.00 Acute gastritis without bleeding; K31.89 Other diseases of stomach and duodenum; E78.5 Hyperlipidemia, unspecified; E11.9 Type 2 diabetes mellitus without complications; Z86.0100 Personal history of colon polyps, unspecified; Z20.822 Contact with and (suspected) exposure to COVID-19; Z98.51 Tubal ligation status; Z90.710 Acquired absence of both cervix and uterus; Z79.4 Long term (current) use of insulin; Z79.82 Long term (current) use of aspirin; Z79.899 Other long term (current) drug therapy
CPT/HCPCS: 43244; 80053; 85025; 85610; 85730; 82948 ×2; 36415; J7030; J2704; A4620; A4215; J3490